=== PATIENT | female | born 1990 | race Caucasian/White ===

== ENCOUNTER 2022-04-17 03:32 | Emergency (ER) | payer OTHER ==
[2022-04-17] MEDS ORDERED: SODIUM CHLORIDE 0.9% 500 ML 500 ML IV STA (03:37)
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
[2022-04-17 03:39] VITALS: BP 147/82; PULSE 78; RESP 16; TEMP 98.5
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
[2022-04-17 05:06] LABS: Basophils % (A) 0 %; Eosinophils # (A) 0.2 k/uL (0-0.7); Eosinophils % (A) 3 %; HCT 35.4 % (34.0-46.0); Lymphocytes # (A) 2.6 k/uL (1.0-4.8); Lymphocytes % (A) 33 %; MCH 29.7 pg (25.0-35.0); MCHC 33.8 g/dL (31.0-37.0); MCV 87.8 fL (80.0-100.0); Mean Platelet Volume 7.3; Monocytes # (A) 0.4 k/uL (0-1.0); Monocytes % (A) 5 %; Neutrophils # (A) 4.5 k/uL (1.3-7.7); Neutrophils % (A) 57 %; Platelet Count 193 k/uL (150-450); RBC 4.03 m/uL (3.80-5.40); RDW 12.7 % (11.5-15.5); WBC 7.8 k/uL (3.8-10.6)
[2022-04-17 05:16] LABS: INR 0.9 (<1.2); Partial Thromboplastin Time 24.5 sec (22.0-30.0); Prothrombin Time 10.2 sec (9.0-12.0)
[2022-04-17 05:27] LABS: ALT 23 U/L (4-34); AST 31 U/L (14-36); African American GFR (CKD) >90 (>60 ml/min/1.73 sqM); Alcohol <10 mg/dL; Alkaline Phosphatase 113 U/L (38-126); Anion Gap 10 mmol/L; Blood Urea Nitrogen 14 mg/dL (7-17); Calcium 8.6 mg/dL (8.4-10.2); Carbon Dioxide 22 mmol/L (22-30); Chloride 104 mmol/L (98-107); Glucose 96 mg/dL (74-99); Non-African American GFR(CKD) >90 (>60 ml/min/1.73 sqM); Sodium 136 mmol/L (137-145); Total Bilirubin 0.7 mg/dL (0.2-1.3); Total Protein 6.6 g/dL (6.3-8.2)
--- NOTE | 2022-04-17 05:27 | XR ---
EXAMINATION TYPE: XR wrist complete RT DATE OF EXAM: 04/17/2022 COMPARISON: NONE HISTORY: Pain TECHNIQUE: 4 views FINDINGS: Carpal bones are intact and metacarpals are intact. I see no fracture nor dislocation. Join t spaces are fairly normal. IMPRESSION: Negative right wrist exam. No fracture.
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
--- NOTE | 2022-04-17 05:28 | XR ---
EXAMINATION TYPE: XR ankle limited bilateral DATE OF EXAM: 04/17/2022 COMPARISON: NONE HISTORY: Pain TECHNIQUE: 2 views each ankle FINDINGS: There is no evidence of fracture nor dislocation. Joint spaces are normal. There is bilater al plantar calcaneal spurring. IMPRESSION: Calcaneal spurring. No evidence of ankle fracture.
--- NOTE | 2022-04-17 05:30 | XR ---
EXAMINATION TYPE: XR knee limited bilateral DATE OF EXAM: 04/17/2022 COMPARISON: None HISTORY: Pain TECHNIQUE: 2 views each knee FINDINGS: There is no evidence of fracture nor dislocation. Joint spaces are normal. There are no pat hologic calcifications. No sign of knee joint effusion. IMPRESSION: Negative bilateral knee exam. No fracture.
[2022-04-17 05:46] LABS: Potassium 4.3 mmol/L (3.5-5.1)
== END 2022-04-17 06:20 | disposition home or self-care (01) ==
LOC: EC 03:32
DX: S09.90XA Unspecified injury of head, initial encounter (principal); M54.2 Cervicalgia; V49.40XA Driver injured in collision with unspecified motor vehicles in traffic accident, initial encounter; Y92.410 Unspecified street and highway as the place of occurrence of the external cause
CPT/HCPCS: 36415; 80053; 84484; 85025; 85610; 85730; 80320; 73560; 73600; 73551; 73110; 72125; 70450; 71260; 74177; 99284; Q9967